=== PATIENT | female | born 1970 | race Two or more races ===

== ENCOUNTER → 2019-06-15 13:01 | Outpatient (CLI) | payer OTHER ==
[~2019-06-15 13:01] MED LIST: NEXIUM20 MG/PACK; TIGAN
== END | disposition home or self-care (01) ==
LOC: LAB 13:01
DX: N76.0 Acute vaginitis (principal); K92.1 Melena; Z12.11 Encounter for screening for malignant neoplasm of colon; E03.8 Other specified hypothyroidism; N30.90 Cystitis, unspecified without hematuria; E78.00 Pure hypercholesterolemia, unspecified; R73.09 Other abnormal glucose; M81.0 Age-related osteoporosis without current pathological fracture

== ENCOUNTER 2019-06-15 13:48 | Outpatient (CLI) | payer OTHER | END 2019-06-15 14:15 | disposition home or self-care (01) | LOC: MAMO-SONO 13:48 | DX: N63.10 Unspecified lump in the right breast, unspecified quadrant (principal); N63.20 Unspecified lump in the left breast, unspecified quadrant; N64.4 Mastodynia; N60.11 Diffuse cystic mastopathy of right breast; Z12.31 Encounter for screening mammogram for malignant neoplasm of breast ==

== ENCOUNTER 2025-07-01 10:55 | Outpatient (CLI) | payer OTHER | END 2025-07-01 11:05 | disposition home or self-care (01) | LOC: MAMO-SONO 10:55 | DX: R05.3 Chronic cough (principal); Z12.31 Encounter for screening mammogram for malignant neoplasm of breast; N60.11 Diffuse cystic mastopathy of right breast; N60.12 Diffuse cystic mastopathy of left breast; Z12.39 Encounter for other screening for malignant neoplasm of breast ==

== ENCOUNTER 2025-08-03 07:50 | Outpatient (CLI) | payer OTHER | END 2025-08-03 08:02 | disposition home or self-care (01) | LOC: TOM 07:50 | PROVIDERS: ATTEND Obstetrics & Gynecology Maternal & Fetal Medicine | DX: K57.92 Diverticulitis of intestine, part unspecified, without perforation or abscess without bleeding (principal); R10.11 Right upper quadrant pain ==